=== PATIENT | male | born 1980 | race Caucasian/White ===

== ENCOUNTER 2024-09-08 22:27 | Emergency (ER) | payer SELFPAY ==
[2024-09-08 22:45] VITALS: TEMP 98.6; BMI 28.8
[2024-09-08] MEDS ORDERED: KETOROLAC TROMETHAMINE 30 MG/1 ML VIAL ONE (23:12)
[2024-09-08] MEDS ORDERED: ACETAMINOPHEN 500 MG TABLET (FP) ONE (23:12)
[2024-09-08] MEDS: KETOROLAC TROMETHAMINE 30 MG/1 ML VIAL IM ONE (23:26)
[2024-09-08] MEDS: ACETAMINOPHEN 500 MG TABLET (FP) PO ONE (23:27)
[2024-09-08 23:29] LABS: EPI CELLS 0 /uL (0-25.1); HYALINE CASTS 0 /uL (0-3.1); URINE APPEARANCE CLEAR; URINE BACTERIA 5 /uL (0-1359); URINE BILIRUBIN NEGATIVE (NEGATIVE); URINE COLOR YELLOW; URINE GLUCOSE (UA) NEGATIVE (NEGATIVE); URINE KETONE NEGATIVE (NEGATIVE); URINE LEUK ESTERASE NEGATIVE (NEGATIVE); URINE NITRITE NEGATIVE (NEGATIVE); URINE PROTEIN NEGATIVE (NEGATIVE); URINE RBC 57 /uL (0-23.9); URINE UROBILINOGEN 0.2 mg/dL (0.2-1.0); URINE WBC 2 /uL (0-25.8)
[2024-09-08] MEDS: METHOCARBAMOL 500 MG TABLET PO ONE (23:38)
[2024-09-09 00:09] LABS: ABSOLUTE IMMATURE GRANULOCYTES 0.01 x10^3/uL (0.0-0.031); BASOPHILS # 0.04 x10^3/uL (0.01-0.08); EOSINOPHIL % 0.4 % (0.8-7.0); EOSINOPHILS # 0.04 x10^3/uL (0.04-0.54); HEMATOCRIT 43.3 % (40.1-51.0); HEMOGLOBIN 14.2 g/dL (13.7-17.5); MCHC 32.8 g/dl (32.3-36.5); MEAN CELL VOLUME 85.7 fl (79.0-92.2); MEAN PLT VOLUME 9.5 fl (9.4-12.4); MONOCYTE # 0.55 x10^3/uL (0.30-0.82); MONOCYTE % 5.7 % (5.3-12.2); PLATELET COUNT 202 x10^3/uL (163-337); RDW 11.9 % (12.1-15.9)
[2024-09-09 00:29] LABS: POTASSIUM 4.3 mmol/L (3.5-5.1)
[2024-09-09 00:30] LABS: CALCIUM 9.8 mg/dL (8.5-10.1)
[2024-09-09 00:34] LABS: CREATININE 1.7 mg/dL (0.55-1.3)
[2024-09-09] MEDS ORDERED: TAMSULOSIN HCL 0.4 MG CAP ONE (01:52)
[2024-09-09 01:53] VITALS: BP 122/62; PULSE 62; RESP 14
[2024-09-09] MEDS: TAMSULOSIN HCL 0.4 MG CAP PO ONE (01:57)
== END 2024-09-09 02:10 | disposition home or self-care (01) ==
LOC: JER 22:27
PROC: 3E0233Z Introduction of Anti-inflammatory into Muscle, Percutaneous Approach (ICD-10-PCS; principal; 2024-09-08)
DX: N13.2 Hydronephrosis with renal and ureteral calculous obstruction (principal); M54.50 Low back pain, unspecified; X50.0XXA Overexertion from strenuous movement or load, initial encounter; Y92.39 Other specified sports and athletic area as the place of occurrence of the external cause
CPT/HCPCS: 36415; 74176-TC; 80048; 81003; 85025; 87086; 99285-25

== ENCOUNTER 2024-10-29 07:52 | Emergency (ER) | payer OTHER ==
[2024-10-29 08:04] VITALS: BMI 28.4
[2024-10-29] MEDS ORDERED: KETOROLAC TROMETHAMINE 15 MG/ML VIAL ONE (08:46)
[2024-10-29] MEDS: SODIUM CHLORIDE 1,000 ML IV STA (09:08)
[2024-10-29] MEDS: KETOROLAC TROMETHAMINE 15 MG/ML VIAL IVPUSH ONE (09:09)
[2024-10-29 09:13] LABS: MCHC 31.7 g/dl (32.3-36.5); MEAN CELL VOLUME 86.9 fl (79.0-92.2); MEAN PLT VOLUME 9.7 fl (9.4-12.4); RDW 12.3 % (12.1-15.9)
[2024-10-29 09:27] LABS: EPI CELLS 1 /uL (0-25.1); HYALINE CASTS 2 /uL (0-3.1); URINE APPEARANCE CLEAR; URINE BACTERIA 10 /uL (0-1359); URINE BILIRUBIN NEGATIVE (NEGATIVE); URINE COLOR YELLOW; URINE GLUCOSE (UA) NEGATIVE (NEGATIVE); URINE KETONE NEGATIVE (NEGATIVE); URINE LEUK ESTERASE 1+ (NEGATIVE); URINE NITRITE NEGATIVE (NEGATIVE); URINE PROTEIN TRACE (NEGATIVE); URINE RBC 704 /uL (0-23.9); URINE UROBILINOGEN 0.2 mg/dL (0.2-1.0); URINE WBC 684 /uL (0-25.8)
[2024-10-29 09:33] LABS: CO2 28.0 mmol/L (21-32); GLUCOSE,RANDOM 96.0 mg/dL (74-106)
[2024-10-29 09:36] LABS: CREATININE 1.1 mg/dL (0.55-1.3); SGOT/AST 21.0 U/L (15-37); SGPT/ALT 48.0 U/L (13-61)
[2024-10-29 09:38] LABS: TOT PROT 7.7 g/dl (6.4-8.2)
[2024-10-29 09:39] LABS: ALK PHOS 90.0 U/L (45-117)
[2024-10-29] MEDS ORDERED: CEFTRIAXONE 1 GM/50 ML BAG ONE (11:51)
[2024-10-29] MEDS: CEFTRIAXONE 1,000 MG in DEXTROSE 5%-WATER - 50 ML IVPB ONE (11:59)
[2024-10-29] MEDS: morphine CARPU-JECT 4 MG/1 ML DISP.SYRIN IVPUSH ONE (11:59)
[2024-10-29 13:24] VITALS: BP 110/67; PULSE 62; RESP 16; TEMP 97.5
[2024-10-29 13:50] LABS: HIV INTERPRETATION NEGATIVE (NEGATIVE)
[2024-10-29 13:54] LABS: HCV DIAGNOSTIC IN-HOUSE W/RFLX NON-REACTIVE (NONREACTIVE)
== END 2024-10-29 13:24 | disposition home or self-care (01) ==
LOC: JER 07:52
PROC: 3E03329 Introduction of Other Anti-infective into Peripheral Vein, Percutaneous Approach (ICD-10-PCS; principal; 2024-10-29)
PROC: 3E0333Z Introduction of Anti-inflammatory into Peripheral Vein, Percutaneous Approach (ICD-10-PCS; 2024-10-29)
PROC: 3E033NZ Introduction of Analgesics, Hypnotics, Sedatives into Peripheral Vein, Percutaneous Approach (ICD-10-PCS; 2024-10-29)
PROC: 3E0337Z Introduction of Electrolytic and Water Balance Substance into Peripheral Vein, Percutaneous Approach (ICD-10-PCS; 2024-10-29)
DX: N20.2 Calculus of kidney with calculus of ureter (principal); N30.01 Acute cystitis with hematuria; R10.32 Left lower quadrant pain; R11.0 Nausea
CPT/HCPCS: 36415; 74176-TC; 80053; 81003; 85025; 86803; 87086; 87389; 99285-25